=== PATIENT | female | born 1960 | race Caucasian/White ===

== ENCOUNTER 2016-10-16 05:56 | Day surgery (SDC) | payer BC ==
[2016-10-09 20:20] LABS: WBC (NOT ORDERED) (RFLEX) 0 (0-5)
[2016-10-09 20:42] LABS: BASOPHILS 0.4 %; BASOPHILS ABSOLUTE 0.02 10/3/uL (0.0-0.16); EOSINOPHILS 6.4 %; EOSINOPHILS ABSOLUTE 0.31 10/3/uL (0.0-0.53); HEMATOCRIT 41.7 % (36.0-48.0); HEMOGLOBIN 14.2 g/dL (12.0-16.0); LYMPHOCYTES ABSOLUTE 1.31 10/3/uL (0.67-4.30); MEAN CORPUS HGB CONC 34.1 g/dL (32.0-36.0); MEAN CORPUSCULAR HEMOGLOB 31.6 pg (26.0-34.0); MEAN CORPUSCULAR VOLUME 92.9 fL (80-100); MEAN PLATELET VOLUME 12.1 fL (9.2-13.0); MONOCYTES 7.4 %; MONOCYTES ABSOLUTE 0.36 10/3/uL (0.21-1.20); NEUTROPHILS 58.8 %; NEUTROPHILS ABSOLUTE 2.86 10/3/uL (2.02-8.40); PLATELET COUNT 127 10/3/uL (150-400); RBC DISTRIBUTION WIDTH 12.7 % (12.0-16.0); RED CELL COUNT 4.49 10/6/uL (4.0-5.6); WHITE BLOOD CELLS 4.9 10/3/uL (4.5-10.5)
[2016-10-09 20:43] LABS: MANUAL DIFF NO %
[2016-10-09 20:45] LABS: PARTIAL THROMBO TIME 29.1 SEC (22.5-37.2); PROTIME (NOT ORD) 12.7 SEC (12.0-14.5)
[2016-10-09 20:49] LABS: BUN (BLOOD UREA NITROGEN) 10 MG/DL (6-23); CALCIUM, SERUM 9.1 MG/DL (8.5-10.4); CHLORIDE, SERUM 104 MMOL/L (96-112); CO2 (CARBON DIOXIDE) 32 MMOL/L (24-34); CREATININE 0.92 MG/DL (0.55-1.02); GFR AFRICAN AMERICAN 82 ML/MIN (>=60); GFR NON AFRICAN AMERICAN 71 ML/MIN (>=60); GLUCOSE, SERUM 84 MG/DL (60-99); POTASSIUM, SERUM 3.7 MMOL/L (3.5-5.3); SODIUM, SERUM 136 MMOL/L (135-148)
[2016-10-09 21:01] LABS: ASCORBIC ACID (UR NOT ORDER) NEG (NEG); BILIRUBIN, URINE NEGATIVE (NEG); KETONE, URINE NEGATIVE (NEG); LEUKOCYTE ESTERASE(NOT OR NEG (NEG)
--- NOTE | ~2016-10-16 | OP ---
Record Of Operation [facility] [address] [place]. [address] NAME: EVELINA LAW : 64 STATUS : [facility]#: [id number] AGE: 56 ADM/REG DATE : 10/16/16 MR#: [id number] REPORT SERV DATE: 10/16/16 DICTATED BY: PATRICIO WHITTAKER DATE: 10/16/16 REPORT STATUS : Draft TRANSCRIBED BY: MODL DATE: 10/16/16 DATE OF PROCEDURE: 10/16/2016 PREOPERATIVE DIAGNOSIS: Abnormal uterine bleeding. POSTOPERATIVE DIAGNOSIS: Abnormal uterine bleeding. PROCEDURES: 1. Robot-assisted laparoscopic hysterectomy with bilateral salpingo-oophorectomy (CPT code 03448). 2. Cystoscopy. ANESTHESIA: General. EBL: 30 mL. CRYSTALLOID: 1600 mL. URINE OUTPUT: 100 mL. DRAINS: Valdez. FINDINGS: Grossly normal-appearing uterus, bilateral fallopian tubes and ovaries. In the course of dissecting out the left retroperitoneum, there was a small serosal injury noted on the anterior surface of the sigmoid colon. This was repaired with 2-0 silk suture. No peritoneal deformities were noted. PATHOLOGY: Uterus, uterine cervix, bilateral fallopian tubes and ovaries, pelvic washings. COMPLICATIONS: None. POSTOPERATIVE PLAN: Extubated to PACU. PROCEDURE IN DETAIL: After informed consent was signed, the patient was taken to the operating room and placed in the dorsal supine position where adequate general anesthesia was administered. She was then placed in the dorsal lithotomy position in Gregory stirrups and prepped and draped in the usual fashion. A Valdez catheter was placed. Uterus was sounded, cervix dilated, and the SLIME uterine manipulator was assembled and deployed. A midline incision was made with a scalpel and carried down to the fascia which was incised, muscle , posterior sheath entered sharply, trocar placed, and abdomen insufflated with CO2 gas. Additional robotic trocars were placed in the bilateral upper quadrants and an entry level assistant manager port placed in the left upper quadrant, all under direct visualization. The patient was placed in steep Trendelenburg and the robot docked in the usual fashion. Bilateral round ligaments were taken with bipolar cautery and transected with monopolar scissors, and the pelvic peritoneum was taken down lateral and parallel to the infundibulopelvic ligaments. With the ureters identified and reflected medially, clips were Record Of Operation [facility] [address] [place]. [address] NAME: EVELINA LAW : 64 STATUS : [facility] PAT#: [id number] AGE: 56 ADM/REG DATE : 10/16/16 MR#: [id number] REPORT SERV DATE: 10/16/16 DICTATED BY: PATRICIO WHITTAKER DATE: 10/16/16 REPORT STATUS : Draft TRANSCRIBED BY: LALIT DATE: 10/16/16 placed in the origins of the uterine arteries bilaterally. In the process of doing so on the left side, there was a small defect in the superficial serosa of the anterior sigmoid colon. The serosal defect was repaired with 2-0 Vicryl suture with a [id number] stitch. The IP ligaments were then isolated, taken with bipolar cautery, transected with monopolar scissors, and the broad ligament taken down to the level of the uterine cervix. A posterior colpotomy was made. Next, the vesicouterine peritoneum was then incised and the bladder taken down well beneath the level of the anterior IRINA ring. The uterine vessels were then taken out of the cervix with bipolar cautery, transected with monopolar scissors, and the parametria reflected off the cervical stroma. The anterior and posterior colpotomies were then connected using monopolar scissors, and the uterus, uterine cervix, and bilateral adnexa were then brought out through the vagina. The vagina was then closed with 0 180 V-Loc suture with a running stitch. The pelvis was irrigated. Excellent hemostasis was noted. Yissel was applied to the pelvic surfaces. All instruments were removed from the abdomen, the robot was undocked, and CO2 gas was evacuated. The Valdez catheter was removed. Cystoscope was placed through the urethra and the bladder distended with appropriate media. Bilateral brisk ureteral jets were noted suggesting bilateral ureteral patency. The cystoscope was removed and the bladder drained. CO2 gas was then reintroduced into the abdomen, and using the laparoscope, the pelvis was re-examined and found to be hemostatic. The laparoscope and all trocars were then removed from the abdomen. The fascia from the supraumbilical and left upper quadrant incisions were closed with 0 Vicryl suture and the skin from all trocar sites was closed with 4-0 Monocryl and Dermabond. The patient tolerated the procedure well, was awakened, extubated, and sent to the PACU in stable condition. ANDREEA/LALIT Patricio Whittaker MD / [id number] CC: MD Aydee Kovacs M.D.
[~2016-10-16 05:56] MED LIST: *DENIES
== END 2016-10-16 17:47 | disposition home or self-care (01) ==
LOC: SDC 05:56
PROVIDERS: Obstetrics & Gynecology Gynecology
PROC: 0UT24ZZ Resection of Bilateral Ovaries, Percutaneous Endoscopic Approach (ICD-10-PCS; 2016-10-16)
PROC: 0UT74ZZ Resection of Bilateral Fallopian Tubes, Percutaneous Endoscopic Approach (ICD-10-PCS; 2016-10-16)
PROC: 0UT94ZZ Resection of Uterus, Percutaneous Endoscopic Approach (ICD-10-PCS; principal; 2016-10-16 07:00)
PROC: 0UTC4ZZ Resection of Cervix, Percutaneous Endoscopic Approach (ICD-10-PCS; 2016-10-16 07:00)
DX: N80.0 Endometriosis of uterus (principal); N83.201 Unspecified ovarian cyst, right side; D69.3 Immune thrombocytopenic purpura; Z98.890 Other specified postprocedural states
CPT/HCPCS: 36415; 71020-PO; 80048; 81001; 85025; 85610; 85730; 86850; 86870; 86900; 86901; 86905; 86920; 86922; 88112; 88307; 93005; A9270-GY; J0461; J0694; J2250; J2405; J2710; J2795; J3010